=== PATIENT | female | born 1940 | race Caucasian/White ===

== ENCOUNTER 2017-01-02 10:39 | Day surgery (SDC) | payer MEDICARE, OTHER ==
[~2017-01-02] VITALS: Ht 149.9 cm; Wt 71.9 kg
[2017-01-02] VITALS (21 sets, daily range): BP systolic 89–187; BP diastolic 52–84; PULSE 65–78; RESP 14–16; TEMP 97.2–97.8; O2SAT 92–100; Ht 149.9 cm; Wt 71.9 kg
[~2017-01-02 10:39] MED LIST: ASPI-611 PO; CALC-603 PO; ERGO400C PO; FURO-33 PO; GABA-305 PO; LABE100T19 PO; LATA2.5D7 BOTH EYES; LIDOCAINE 1% (10mg/ml) 2ml SDV INJ ONE; LOSA100T44 PO; LR 1,000 ML IV SCH; MESA1.2T PO; MULT-806 PO; NAPR220C11 PO; NORMAL SALINE 1,000 ML IV PRN; PANT40TA27 PO; POTA20TA15 PO; QUET25TA PO; ROPI2TAB5 PO; SUCR1TAB29 PO; [UNRECOGNIZED DRUG - CODE] PO
--- OUTSIDE RECORDS SUMMARY | 2017-01-02 10:43 | XMS REPORT | Continuity of Care Document ---
Author Author [facility] Organization [facility] Address Unknown Phone Unavailable Care Team Providers Care Criminal Defense Lawyer Name Role Phone ERIN GALVEZ DO Primary Care Physician [phone] Insurance Providers Guarantor Maik Yeung Address [address] [place] [address] Email DENIED/NO TO PT [facility] Policy Number [id number] Subscriber's Name Maik Yeung Relationship 18 Self Group Number [id number] Effective Date 09 Payer Medicare Policy Number [id number] Subscriber's Name Maik Yeung Relationship 18 Self Effective Date 04 Chief Complaint and Reason for Visit Chief Complaint Cough,Fever,Flu,URI Reason for Visit Viral upper respiratory tract infection with cough Problems Active Problems Medical Problem Onset Date Status Iliotibial band syndrome Unknown Acute Viral upper respiratory tract infection with cough Unknown Acute Medications Current Home Medications Medication Dose Units Route Directions Days Qty Instructions Start Date Acetaminophen 650 Mg Tablet.er 2 Tab Oral Three Times A Day as needed for Pain 09/25/15 Aspirin 81 Mg Tablet 81 Mg Oral Daily 02/15/13 Calcium 500 Mg Tablet 1,200 Mg Oral Daily 06/19/10 Calcium/Cranberry Fruit (Cranberry 400 Mg Caplet) 1 Tab Tablet 1 Tab Oral Daily 10/07/11 Clonazepam 0.5 Mg/Tab Tab.rapdis 0.5 Mg Oral Bedtime 04/03/12 Ergocalciferol (Vitamin D) 400 Unit Capsule 1,000 Unit Oral Daily 06/19/10 Furosemide 40 Mg Tablet 40 Mg Oral Daily 02/15/13 Gabapentin 600 Mg Tablet 1 Tab Oral Twice A Day 10/10/16 Labetalol Hcl 100 Mg Tablet 100 Mg Oral Twice A Day 02/15/13 Latanoprost (Xalatan) 2.5 Ml Drops 1 Drop Both Eyes Bedtime 02/15 Losartan Potassium 100 Mg Tablet 1 Tab Oral Daily 09/25/15 Magnesium Oxide 400 Mg Tablet 1 Tab Oral Twice A Day 10/19/15 Mesalamine (Lialda) 1.2 G Tablet 4 Tab Oral Daily 120 Tablet Multivitamins (Multivitamin) 1 Tab Tablet 1 Tab Oral Daily Multivitamins With Min No.5/Fa (Eldercaps Capsule) 1 Mg Capsule 1 Cap Oral Daily 09/25/15 Pantoprazole Sodium 40 Mg Tablet.dr 40 Mg Oral Before Breakfast Take 1 tablet, by mouth, daily before breakfast. 01/29/16 Potassium Chloride (K-Dur) 20 Meq Tab.er.prt 20 Meq Oral Daily Quetiapine Fumarate (Seroquel) 25 Mg Tablet 25 Mg Oral Bedtime Ropinirole Hcl (Requip) 2 Mg Tablet 2 Mg Oral Three Times A Day 06/19/10 Sucralfate (Carafate) 1 G Tablet 1 G Oral Bedtime 02/15/13 Past Home Medications Medication Directions Ordered Status Acetaminophen (Tylenol Extra Strength) 500 Mg Tablet, 500 Mg Oral As Needed 10/16/10 Discontinued Acetaminophen (Tylenol 8 Hour) 650 Mg Tablet.sa, 1300 Mg Oral Three Times A Day 06/19/10 Discontinued Aliskiren Hemifumarate (Tekturna) 300 Mg Tablet, 300 Mg Oral Daily 06/19/10 Discontinued Aliskiren/Hydrochlorothiazide (Tekturna Hct 300-25 Mg Tablet) 1 Tab Tablet, 1 Tab Oral Daily 08/08/09 Discontinued Aspirin (Aspir 81) 81 Mg Tablet.dr, 81 Mg Oral Daily 10/16/10 Discontinued Clindamycin Hcl 150 Mg Capsule, 150 Mg Oral 04/03/12 Discontinued Clindamycin Hcl (Cleocin) 300 Mg Capsule, 600 Mg Oral Daily 07/09/09 Discontinued Clonidine Hcl 0.1 Mg Tablet, 0.2 Mg Oral Twice A Day 06/19/10 Discontinued Elderbrry , 09/08/10 Discontinued Elderbrry , 06/18/10 Discontinued Ferrous Sulfate (Slo-Fe) 160 Mg Tablet, 160 Mg Oral Daily 08/08/09 Discontinued Hydralazine Hcl 25 Mg Tablet, 50 Mg Oral Three Times A Day 10/07/11 Discontinued Hydrocodone Bit/Acetaminophen ([place] 7.5/325 Tablet) 1 Tab Tablet, 1-2 Tab Oral As Needed 10/11/13 Discontinued Labetalol Hcl 300 Mg Tablet, 300 Mg Oral Twice A Day 06/19/10 Discontinued Lansoprazole (Prevacid) 15 Mg Capsule.dr, 30 Mg Oral Daily 10/07/11 Discontinued Latanoprost (Xalatan) 2.5 Ml Drops, 1 Drop Ophthalmic Evening 12/01/11 Discontinued Mesalamine (Asacol) 400 Mg Tablet.dr, 400 Mg Oral Twice A Day 06/19/10 Discontinued Metoprolol Succinate (Toprol Xl) 50 Mg Tab.sr.24h, 50 Mg Oral Twice A Day 09/07 Discontinued Minoxidil 10 Mg Tablet, 10 Mg Oral Daily 12/01/11 Discontinued Multivitamins (Multi-Day Vitamin) 1 Tab Tablet, 1 Tab Oral Daily 06/19/10 Discontinued Nifedipine (Nifedipine Er) 60 Mg Tablet.sa, 90 Mg Oral Daily 06/19/10 Discontinued Omeprazole/Sodium Bicarbonate (Zegerid 20 Mg Capsule) 1 Cap Capsule, 1 Cap Oral Twice A Day 06/19/10 Discontinued Ranitidine Hcl (Zantac) 300 Mg Tablet, 300 Mg Oral Bedtime 06/19/10 Discontinued Sucralfate (Carafate) 1 G Tablet, 1 G Oral Bedtime 10/07/11 Discontinued Zolpidem Tartrate 5 Mg Tablet, 5 Mg Oral As Needed 10/07/11 Discontinued Social History Social History Problem Response Recorded Date/Time Onset Date Status Chewing Tobacco Status No 10/17/2013 6:29am Not Applicable Not Applicable Hx Substance Use No 01/30/2016 7:21am Not Applicable Not Applicable Hx Alcohol Use Y WINE DAILY 01/30/2016 7:21am Not Applicable Not Applicable Has the pt used tobacco in the last 12 months No 01/30/2016 7:21am Not Applicable Not Applicable Hospital Discharge Instructions No hospital discharge instructions. Plan of Care Discharge Date 10/10/16 1:05pm Disposition 01 DISCHARGED HOME, SELF-CARE Condition at Discharge Stable Instructions/Education Provided DI for Viral Upper Respiratory Infection -- Adult Prescriptions See Medication Section Referrals ERIN GALVEZ DO Address: [address] [place] [phone] Additional Instructions/Education 1 all or ibuprofen as needed for body aches and fevers. Follow with primary care provider if symptoms are worsening. Functional Status No functional status results. Allergies, Adverse Reactions, Alerts Allergen Type Severity Reaction Status Last Updated Sulfa (Sulfonamide Antibiotics) Allergy Intermediate HIVES Active 10/10/16 Lisinopril Adverse Reaction Mild COUGH Active 10/10/16 Morphine Allergy Unknown CHEST PAINS Active 10/10/16 Codeine Adverse Reaction Unknown CHEST PAINS Active 10/10/16 Hydrochlorothiazide Adverse Reaction Unknown SODIUM DEPLETION Active 10/10 Ampicillin Allergy Unknown ITCHING,HIVES Active 10/10/16 Amlodipine Allergy Unknown Active 10/10/16 Amoxicillin Allergy Unknown ITCHING,HIVES Active 10/10/16 Pneumococcal conjugate vaccine Allergy Unknown RASH,FEVER BLISTERS Active 10/10/16 Lydrocloroth Allergy Unknown Active 12/01/11 TAPE Allergy Mild RASH Active 03/13/08 Immunizations Query Response on File Recorded Date/Time Hx Influenza Vaccination Y JUL 2015 01/30/16 7:21am Hx Pneumococcal Vaccination Y JUN 2013-DISCOVERED ALLERGY 01/30/16 7:21am Hx Influenza Vaccination Y JUL 2015 01/30/16 7:21am Influenza Vaccine Hx JUL 2016 10/10/16 12:44pm Vital Signs Acute Vital Signs Vital Response Date/Time Temperature (Fahrenheit) 99.1 deg F (96.8 - 99.1) 10/10/2016 12:42pm Temperature (Calculated Celsius) 37.54557 degrees C (36.0 - 37.3) 10/10/2016 12:42pm Pulse Rate (adult) 73 bpm (60 - 100) 10/10/2016 12:42pm Respiratory Rate 20 breaths/min (10 - 20) 10/10/2016 12:42pm O2 Sat by Pulse Oximetry 96 % (90 - 100) 10/10/2016 12:42pm Blood Pressure 143/85 mm Hg 10/10/2016 12:42pm Height (Inches) 60.00 inches 10/10/2016 12:42pm Weight (Kilograms) 72.500 kg 10/10/2016 12:42pm Body Mass Index (BMI) 31.0 10/10/2016 12:42pm Results No known relevant diagnostic tests, laboratory data and/or discharge summary. Procedures No known history of procedures. Encounters Encounter Location Arrival/Admit Date Discharge/Depart Date Attending Provider Departed Emergency Room [facility] 10/10/16 12:13pm 10/10/16 1: 05pm RAJESH RIDER APRN Recent Diagnosis
[2017-01-02] MEDS ORDERED: FENTANYL 100mcg/2ml INJECTION ONE (12:18)
[2017-01-02] MEDS ORDERED: MIDAZOLAM 5mg/5ml INJECTION ONE ×3 (12:18→13:30)
[2017-01-02] MEDS ORDERED: SALINE FLUSH 10ml SYRINGE ONE (12:18)
[2017-01-02] MEDS ORDERED: FENTANYL 100mcg/2ml INJECTION IV PRN (12:42)
[2017-01-02] MEDS ORDERED: MIDAZOLAM 5mg/5ml INJECTION IV PRN (12:42)
[2017-01-02] MEDS ORDERED: GLUCAGON 1 MG INJECTION ONE (13:06)
[2017-01-02] MEDS ORDERED: GLUCAGON 1 MG INJECTION IV PRN (13:15)
[2017-01-02] MEDS ORDERED: CLINDAMYCIN 600mg IVPB 50 ML IV ONE (13:15)
[2017-01-02] MEDS ORDERED: METR-115 PO (13:49)
--- NOTE | 2017-01-03 09:33 | OPNOTEF ---
DATE OF PROCEDURE 01/02/2017 PROCEDURE Colonoscopy PHYSICIAN Sebastien Juarez, DO INDICATIONS Rectal bleeding and abdominal pain, history of Crohn's disease. ASA CLASSIFICATION 2 DESCRIPTION OF PROCEDURE Consent signed on the chart. Routine monitoring with ECG, continuous oximetry, and noninvasive blood pressure performed throughout the procedure and found to be within normal limits. IV sedation performed with a total of 12 mg of Versed and 100 mcg of fentanyl. She was also given 1 amp of glucagon and 600 mg of clindamycin due to indwelling hardware. Prior to the procedure, patient was brought to the endoscopy lab where brief review of her medical history and physical exam was performed. The procedure was described to her. She was agreeable to continue. All questions were answered. She was given IV sedation, placed in the left lateral decubitus position. A digital rectal exam revealed no palpable masses. A colonoscope was introduced through the anal verge and immediately noted evidence of colitis, with multiple ulcerations. This continued to about 30 cm at which point I noted that she had diverticulosis for the remainder of the descending colon. Scope was advanced to the cecum. Upon reaching the cecum, careful inspection of the mucosa was performed. This area also had multiple small ulcerations. Photograph taken and biopsied. Then with careful withdraw of the scope through the ascending and transverse colon, there were no polyps, masses, lesions, or diverticula. Again we saw the diverticulosis of the descending colon beginning at 30 cm and diffuse colitis with ulcerations. Multiple biopsies were taken from 30 cm back to the anal verge. She tolerated the procedure well. There were no complications. IMPRESSION 1. Small ulcerations at the cecum biopsied. 2. Colitis anal verge to 30 cm biopsied. 3. Diverticulosis of the descending colon. RECOMMENDATIONS 1. Review the path report. 2. I am putting her on Flagyl 500 mg 3 times daily x7 days until pathology report arrives. This is to treat her for the possibility of infectious colitis. JIMMY
== END 2017-01-02 14:58 | disposition home or self-care (01) ==
LOC: SCU 10:39
PROVIDERS: ATTEND Internal Medicine
DX: K50.111 Crohn's disease of large intestine with rectal bleeding (principal); K63.3 Ulcer of intestine; K62.89 Other specified diseases of anus and rectum; K57.30 Diverticulosis of large intestine without perforation or abscess without bleeding; Z87.19 Personal history of other diseases of the digestive system; K21.9 Gastro-esophageal reflux disease without esophagitis; I10 Essential (primary) hypertension; K59.09 Other constipation; G47.00 Insomnia, unspecified; G25.81 Restless legs syndrome; E66.9 Obesity, unspecified; Z68.32 Body mass index [BMI] 32.0-32.9, adult; Z87.891 Personal history of nicotine dependence; Z79.82 Long term (current) use of aspirin; Z79.899 Other long term (current) drug therapy
CPT/HCPCS: 45380; J1610; J2250; J3010; J7030

== ENCOUNTER → 2017-02-25 | Outpatient (CLI) | payer MEDICARE, OTHER ==
[~2017-02-25] MED LIST changes: -LIDOCAINE 1% (10mg/ml) 2ml SDV INJ ONE; -LR 1,000 ML IV SCH; +METR-115 PO; -NORMAL SALINE 1,000 ML IV PRN
== END ==
LOC: WC.BC 07:32
DX: Z12.31 Encounter for screening mammogram for malignant neoplasm of breast (principal); N64.59 Other signs and symptoms in breast
CPT/HCPCS: 77063; G0202